=== PATIENT | male | born 1935 | race Caucasian/White ===

== ENCOUNTER 2018-01-27 15:36 | Inpatient (IN) | payer MEDICARE, OTHER ==
[2018-01-27 16:28] LABS: #Basophils 0.1 thou/uL (0.0-0.2); #Eosinphils 0.4 thou/uL (0.0-0.7); #Lymphocytes 1.9 thou/uL (1.20-3.40); #Monocytes 0.6 thou/uL (0.11-0.59); #Neutrophils 4.2 thou/uL (1.40-6.50); %Basophils 0.9 % (0.0-1.0); %Eosinophils 5.5 % (0.0-10.0); %Lymphocytes 26.7 % (21.0-51.0); %Monocytes 8.2 % (0.0-10.0); %Neutrophils 58.8 % (42.0-75.0); Hemoglobin 15.3 g/dL (14.0-18.0); Mean Corpuscular Hemoglobin 32.6 pg (27.0-31.0); Mean Corpuscular Volume 95.8 fl (80.0-94.0); Mean Platelet Volume 7.6 fL (7.4-10.4); Platelet Count 189 thou/uL (130-400); RBC Distribution Width 11.8 % (11.5-14.5); Red Blood Cell (RBC) Count 4.71 mill/uL (4.70-6.10); White Blood Cell (WBC) Count 7.1 thou/uL (4.8-10.8)
[2018-01-27 16:35] LABS: PTT 29.5 SEC (22.9-36.1); Prothrombin Time 13.6 SEC (12.0-14.7)
[2018-01-27] MEDS ORDERED: Pantoprazole 40 MG VIAL ONE (16:39)
[2018-01-27 16:40] LABS: ALT (SGPT) 34 U/L (8-55); AST (SGOT) 21 U/L (5-34); Albumin 3.8 g/dL (3.4-4.8); Alkaline Phosphatase 43 U/L (40-150); Anion Gap 12 mmol/L (10-20); BUN (Urea Nitrogen) 22 mg/dL (8.4-25.7); Bilirubin, Total 1.2 mg/dL (0.2-1.2); Calc. Creatinine Clearance 0 mL/min (70-130); Calcium 9.2 mg/dL (7.8-10.44); Carbon Dioxide 23 mmol/L (23-31); Chloride 108 mmol/L (98-107); Estimated GFR-MDRD 52; Globulin 2.9 g/dL (2.4-3.5); Glucose 133 mg/dL (83-110); Potassium 4.3 mmol/L (3.5-5.1); Protein, Total 6.7 g/dL (5.8-8.1); Sodium 139 mmol/L (136-145)
[2018-01-27 16:49] LABS: CKMB 1.5 ng/mL (0-6.6); Troponin I 0.018 ng/mL (< 0.028)
--- NOTE | 2018-01-27 17:13 | RAD ---
FRONTAL RADIOGRAPH CHEST 01/27/18 COMPARISON: 09/22/16 HISTORY: Nausea, vomiting. FINDINGS: There is no pneumothorax or pleural fluid. No focal consolidation or alveolar edema. Heart and medias tinal contours are unremarkable. There is atherosclerotic calcification of the aortic arch. IMPRESSION: No acute findings. POS: [facility]
[2018-01-27] MEDS ORDERED: Ondansetron HCl/PF 4 MG/2 ML Vial IVP PRN (17:36)
[2018-01-27] MEDS ORDERED: Ondansetron ODT 4 MG TAB SL PRN (17:36)
[2018-01-27] MEDS ORDERED: D5 1/2 NS w/20 mEq KCL 1,000 ML IV SCH (17:45)
[2018-01-27 17:47] VITALS: BMI 28.0
--- NOTE | 2018-01-27 18:00 | PDOC.EVN ---
Event Note - Event Note Event Note: [id number] H&P Dictated 1. Melena 2. HTN 3. H/O CAD 4. H/O HPL plan: see orders
[2018-01-27] MEDS: Sodium Chloride 0.9% 1,000 ML IV SCH (18:29)
[2018-01-27 19:14] LABS: PTT 29.6 SEC (22.9-36.1); Prothrombin Time 13.3 SEC (12.0-14.7)
[2018-01-27] MEDS: Pantoprazole 40 MG VIAL IVP SCH (21:03)
--- NOTE | 2018-01-28 00:26 | HP ---
DATE OF ADMISSION: 01/27/2018 CHIEF COMPLAINT: Melena. HISTORY OF PRESENT ILLNESS: The patient is an 82-year-old male with past medical history of hyperten jone, hyperlipidemia, coronary artery disease, now came today complaining of black stool. The patien t had an episode of black stool yesterday and then today. Denies any bright red blood per rectum. D enies any abdominal pain, denies any nausea, denies any vomiting, denies any hematemesis. Denies sim ilar episodes in the past. Denies any chest pain. Denies any palpations. Denies any cough. Denies sputum production. The patient said he does take aspirin and Plavix at home. Denies any fever, den ies any chills, denies cough, denies any sputum production. PAST MEDICAL HISTORY: As per HPI. PAST SURGICAL HISTORY: Back surgery, no surgery. SOCIAL HISTORY: Denies smoking, denies alcohol or denies any drugs. FAMILY HISTORY: Denies heart problems. MEDICATIONS: Reviewed. ALLERGIES: Reviewed. REVIEW OF SYSTEMS: Constitutional: Denies any fevers, denies any chills. Eyes: Denies vision prob lems. Ears: denies hearing loss. Neck: Denies any neck pain. Cardiovascular: Denies any chest p ain, denies any palpitations. Respiratory system: Denies any cough, denies sputum production. Aníbal rointestinal: Denies nausea or vomiting. Genitourinary: Denies dysuria. Musculoskeletal: No joint deformities. Cranial nerve system: Denies syncope, denies lightheadedness. Psychiatric: Denies a nxiety. All other review of systems are reviewed and are negative. PHYSICAL EXAMINATION: Constitutional/vital signs: At the time of H and P performed temperature is 98.4, heart rate 64, res piration rate 16, blood pressure is 155/82. GENERAL: The patient appears comfortable. HEENT: Pupils equal, round, reactive. Nose are normal. Ears are normal. Teeth intact. Tongue is moist. NECK: Supple. No JVD. CARDIOVASCULAR SYSTEM: S1, S2 present. Regular rate and rhythm, no murmurs, no rubs, no gallops. RESPIRATORY SYSTEM: No wheezing, no rhonchi. Breath sounds present laterally. GASTROINTESTINAL: Abdominal is soft, nontender, no guarding normally, no masses felt. MUSCULOSKELETAL: No edema. NEUROLOGIC: Cranial nerve system awake, follows commands, strength intact, sensory intact. PSYCHIATRIC: Mood is appropriate of this time. INTEGUMENTARY: No rash seen. GENITOURINARY: No suprapubic tenderness, LABORATORY DATA: No labs at the time of H and P performed. Sodium 139, potassium 4.3, chloride 108, CO2 of 23, BUN was 22, creatinine 1.32. BNP 271. Troponin 0.018. Serum total protein 6.7. White count 7.1, hemoglobin 15.3, platelet count is 189. PT 13.6, INR 1. ASSESSMENT AND PLAN: The patient is an 82 years old male. 1. Melena. Plan to do check H and H q.6 hours. Plan to monitor the patient closely. If hemoglobin drops, we will send stool occult blood also. We will monitor the patient closely. 2. Hypertension. Monitor history of coronary disease. Denies any history of stents in the pa st, so will go ahead and hold aspirin and Plavix at this time. We will monitor the patient. 3. History of hyperlipidemia. Continue statin. The case was discussed in detail with the patient and the family also.
[2018-01-28 05:23] LABS: #Basophils 0.1 thou/uL (0.0-0.2); #Eosinphils 0.5 thou/uL (0.0-0.7); #Lymphocytes 3.4 thou/uL (1.20-3.40); #Monocytes 0.7 thou/uL (0.11-0.59); #Neutrophils 4.3 thou/uL (1.40-6.50); %Basophils 0.6 % (0.0-1.0); %Eosinophils 5.5 % (0.0-10.0); %Lymphocytes 37.4 % (21.0-51.0); %Monocytes 8.1 % (0.0-10.0); %Neutrophils 48.4 % (42.0-75.0); Hemoglobin 15.4 g/dL (14.0-18.0); Mean Corpuscular HGB CONC 33.3 g/dL (32.0-36.0); Mean Corpuscular Hemoglobin 32.1 pg (27.0-31.0); Mean Corpuscular Volume 96.5 fl (80.0-94.0); Mean Platelet Volume 8.6 fL (7.4-10.4); Platelet Count 184 thou/uL (130-400); Red Blood Cell (RBC) Count 4.79 mill/uL (4.70-6.10)
[2018-01-28 05:44] LABS: ALT (SGPT) 34 U/L (8-55); AST (SGOT) 24 U/L (5-34); Albumin 3.6 g/dL (3.4-4.8); Alkaline Phosphatase 43 U/L (40-150); Anion Gap 17 mmol/L (10-20); BUN (Urea Nitrogen) 20 mg/dL (8.4-25.7); Calc. Creatinine Clearance 60 mL/min (70-130); Calcium 8.9 mg/dL (7.8-10.44); Carbon Dioxide 20 mmol/L (23-31); Chloride 106 mmol/L (98-107); Estimated GFR-MDRD 53; Globulin 3.2 g/dL (2.4-3.5); Glucose 73 mg/dL (83-110); Potassium 4.4 mmol/L (3.5-5.1); Protein, Total 6.8 g/dL (5.8-8.1); Sodium 139 mmol/L (136-145)
[2018-01-28] MEDS: Sodium Chloride 0.9% 1,000 ML IV SCH (06:01)
[2018-01-28] MEDS ORDERED: Lidocaine 1% PF 5 ML VIAL ONE (07:11)
[2018-01-28] MEDS ORDERED: Propofol 200 MG/20 ML VIAL ONE (07:11)
[2018-01-28] MEDS ORDERED: Acetaminophen 325 MG TAB PO PRN (09:10)
[2018-01-28] MEDS ORDERED: Ondansetron HCl/PF 4 MG/2 ML Vial IVP PRN (09:10)
[2018-01-28] MEDS ORDERED: hydrALAZINE 20 MG/ML VIAL SLOW IVP PRN (09:10)
--- NOTE | 2018-01-28 09:12 | PDOC.PN ---
- Subjective Encounter Start Date: 01/28/18 Encounter Start Time: 09:11 Mr. Ramirez was seen today in follow-up. He does not have any complaints this morning. He has not noted any rectal bleeding this morning. - Objective Resuscitation Status: Resuscitation Status FULL:Full Resuscitation MAR Reviewed: Yes Vital Signs & Weight: Vital Signs (12 hours) Temp Pulse Resp BP Pulse Ox 01/28/18 07:18 98.2 F 64 16 145/74 H 94 L 01/28/18 04:00 97.9 F 72 20 133/69 93 L Weight Weight 217 lb I&O: 01/27/18 01/28/18 01/29/18 06:59 06:59 06:59 Intake Total 1620 Output Total 550 Balance 1070 Result Diagrams: 01/28/18 08:01 01/28/18 04:03 Phys Exam - Physical Examination HEENT: PERRLA Respiratory: no wheezing, no rales, no rhonchi, clear to auscultation bilateral Cardiovascular: RRR, no significant murmur, no rub Gastrointestinal: soft, non-tender, positive bowel sounds Musculoskeletal: no edema Dx/Plan (1) Melena Code(s): K92.1 - MELENA Status: Acute (2) CAD (coronary artery disease) Code(s): I25.10 - ATHSCL HEART DISEASE OF [place] CORONARY ARTERY W/O ANG PCTRS Status: Acute (3) Hypertension Code(s): I10 - ESSENTIAL (PRIMARY) HYPERTENSION Status: Acute - Plan * GI bleed- his H&H has remained stable. He has not reported any further bleeding. He is concerned and would like to see a [employer] before discharge- will consult GI * CAD- stable- will have to hold aspirin and Plavix due to concerns for possible bleed. * Continue Protonix BID * HTN- blood pressure is stable.
[2018-01-28] MEDS: Pantoprazole 40 MG VIAL IVP SCH (09:32)
[2018-01-28 18:25] VITALS: BP 170/82; TEMP 98.2
--- NOTE | 2018-01-29 01:08 | OP ---
PROCEDURE: EGD. PREPROCEDURE DIAGNOSES: 1. Reported history of melena in the outpatient setting, one stool daily for 3 days formed, black. In the emergency room, the ER note indicates he had "malonic stool." Hemoccult one was positive, one was negative. 2. The patient has had no signs of bleeding since admission, his hemoglobin remains normal. His BUN is not elevated and he has had no bowel movements. 3. The patient is on anticoagulation. Decision was made to proceed with endoscopy to rule out upper gastrointestinal bleed. POSTPROCEDURE DIAGNOSIS: Esophagogastroduodenoscopy is normal, no signs of bleeding. RECOMMENDATION: Advance diet and the patient go home. , so I will give him 60 days' supply of pantoprazole. ANESTHESIA: TIVA. PROCEDURE IN DETAIL: After the patient was informed of the risks, benefits, possible complications o f endoscopy including perforation, bleeding, reactions to medication and aspiration, informed consent was obtained. The patient was brought to endoscopy suite where she was sedated in gradual fashion. Once she was comfortable, the endoscope was advanced through the esophagus, stomach, and second and third portion of duodenum and slowly removed. There was good visualization of mucosa. There were no masses, lesions or AV malformations identified. Retroflexed views in the stomach were normal. Ther e were no stigmata of bleeding. The scope was removed. The patient tolerated the procedure well wit h no complications.
--- NOTE | 2018-01-29 01:52 | CON ---
DATE OF CONSULTATION: 01/28/2018 HISTORY OF PRESENT ILLNESS: Mr. Gonzalez is an 82-year-old gentleman who came to the hospital yesterda y to the emergency room as he has had 3 days of black stools. He had 1 bowel movement per day. Ther e were formed, but black. He denies taking iron or Pepto-Bismol, eating dark greens. He had taken n o over the counter antacids. In the emergency room, he was found to be hemodynamically stable, but w ith his history of being on aspirin and Plavix for cardiac disease, he was examined in the emergency room physician documented that he had dark tarry stool visualized. Initially, Hemoccults have been p erformed, one of which was positive and one of which was negative. The story gets more confusing wit h the fact that his hemoglobin was 15.3 at 1600 yesterday and it was 15.4 at 4:00 this morning and on ly hematocrit was checked at 8:00 this morning, but it was 43.8 from 46.2, which is possibly a drop o f 1 gram at best. He has been on IV fluids. He has had no bowel movement since admission. Presentl y, he denies shortness breath, chest pain, dizziness or abdominal pain. He has had no recent dyspeps ia or reflux. PAST MEDICAL HISTORY: Notable for coronary artery disease. PAST SURGICAL HISTORY: Back surgery. He had EGD and colonoscopy at our office in 07/2014, which wer e notable for normal stomach biopsy and some hyperplastic polyps. He sees Dr. Reno Thompson for coronary artery disease. He had a previous MD. He also had a TIA. He denies having any cardiac stents plac ed. SOCIAL HISTORY: He denies drugs, alcohol, or tobacco use. HOME MEDICATIONS: Potassium bicarbonate, nitroglycerin p.r.n., he has not used that in years. Metop rolol, furosemide, Plavix 75 mg daily, atorvastatin, aspirin 81 mg daily. PRESENT MEDICATIONS: Tylenol, Protonix 40 IV b.i.d., Zofran and normal saline 75 an hour. PHYSICAL EXAMINATION: GENERAL: Patient is resting comfortably in bed. He is in no distress. He is alert and oriented to person, place, and time. His son is at the bedside. LUNGS: Clear. HEART: Regular rate and rhythm without clicks or murmurs. ABDOMEN: Soft, nontender, without rebound or guarding. RECTAL: Reveals dark brown stool. It does not appear melenic. VITAL SIGNS: Temperature is 98, pulse 81, blood pressure 129/76. OTHER LABORATORY DATA: Comp met profile was normal with a BUN of 20, creatinine of 1.29. ASSESSMENT: This is an 82-year-old gentleman who comes in with a reported 3 days of black stools. Yuliya aguilar has given a documented rectal examination from the emergency room physician states he had melenic b lack stool; however, he has had a stable hemoglobin since admission. No evidence of elevated BUN and on my rectal examination, now he has a brown stool. He does have 1/2 Hemoccult positive. This is a little bit confusing to me. I am not sure that he ever had melena, but the ER physician did documen t that in his study that he did a rectal exam and saw the patient states his stool was black, althoug h more formed and not tarry; however, the patient has significant risk factors for bleeding with his advanced age using NSAIDs daily and also being on Plavix. I think the better part judgment he has be en n.p.o. He is to go ahead and perform EGD today. If that is normal, he can eat and go home. If i t is not and he has a ulcer, we , he may go home. If it is something we can treat endoscopicall y, then he will need to stay overnight. He agrees with this plan as does the son. The risks, benefi ts, and possible complications of endoscopy discussed with the patient. We will proceed with EGD toarianna dominguez and has been scheduled surgery.
--- NOTE | 2018-01-29 15:34 | DIS ---
DATE OF ADMISSION: 01/27/2018 DATE OF DISCHARGE: 01/28/2018 PRIMARY CARE PHYSICIAN: Unknown. DISCHARGE DISPOSITION: Home. PRIMARY DISCHARGE DIAGNOSES: 1. Possible melena. 2. Hypertension. 3. Hyperlipidemia. 4. Coronary artery disease. DISCHARGE MEDICATIONS: Protonix 40 mg daily, as well as aspirin 81 mg daily, Lipitor 40 mg at bedtim e, Plavix 75 mg daily, Lasix 20 mg as directed, metoprolol 25 mg twice daily, Nitrostat as needed. PROCEDURES DONE DURING ADMISSION: The patient had an upper endoscopy, which was normal. There were no signs of any bleeding. CODE STATUS: FULL CODE. ALLERGIES: PROPOXYPHENE. HOSPITAL COURSE: Mr. Gonzalez is a pleasant 82-year-old gentleman, who came to the emergency room afte r experiencing melena. He says he was having black stools. He also felt a little bit dizzy and ligh theaded. He was evaluated in the emergency room and one of his stools was positive for occult blood. Another repeat stool was negative. He was admitted and seen by Gastroenterology. He had an upper endoscopy, which was negative for signs of bleeding. It is also noted that his hemoglobin remained s table with hemoglobin of 15.3 on the second and the following day, the hemoglobin actually increased to 15.4. He had a bowel movement the following morning and there were no signs of bleeding. That al екатерина with a negative EGD, he was discharged home. 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
== END 2018-01-28 19:05 | disposition home or self-care (01) | DRG 379 ==
LOC: ERS 15:36 → 2NO 16:49
PROVIDERS: ADMIT Internal Medicine; ATTEND Internal Medicine
PROC: 0DJ08ZZ Inspection of Upper Intestinal Tract, Via Natural or Artificial Opening Endoscopic (ICD-10-PCS; principal; 2018-01-27)
DX: K92.1 Melena (principal); E78.5 Hyperlipidemia, unspecified; I25.10 Atherosclerotic heart disease of native coronary artery without angina pectoris; I10 Essential (primary) hypertension; Z79.82 Long term (current) use of aspirin
CPT/HCPCS: 36415; 71045; 80053; 82274; 82553; 83880; 84484; 85025; 85610; 85730; 86850; 86900; 86901; 93005; 96361; 96374; C9113; J2001; J2704

== ENCOUNTER 2019-12-07 15:15 | Outpatient (CLI) | payer MEDICARE, OTHER ==
--- NOTE | 2019-12-07 16:27 | ULT ---
RENAL ULTRASOUND: 12/07/19 HISTORY: Chronic renal failure. COMPARISON: None. TECHNIQUE: Sagittal and transverse imaging of the kidneys is performed. FINDINGS: Right kidney: No evidence of a cortical mass. No hydronephrosis. Right kidney measures 0.2 x 4.6 x 5.2 cm. Left kidney: There are two separate anechoic foci in the left renal cortex, likely representing exophytic cysts. T here is a cyst in the upper pole of the left kidney measuring 1.2 x 1.0 x 1.1 cm. Cyst in the mid priscilla e of the left kidney measures 1.1 x 1.1 x 1.0 cm. No hydronephrosis. Left kidney measures 5.1 x 5.0 x 10.2 cm. Bladder could not be assessed due to inadequate distention. IMPRESSION: No hydronephrosis. POS: [facility]
== END 2019-12-07 15:16 | disposition home or self-care (01) ==
LOC: BICULT 15:15
PROVIDERS: ATTEND Internal Medicine Nephrology
DX: N18.3 Chronic kidney disease, stage 3 (moderate) (principal)
CPT/HCPCS: 76770

== ENCOUNTER 2022-06-14 18:51 | Inpatient (IN) | payer MEDICARE ==
[2022-06-14 19:32] LABS: #Basophils 0.1 thou/uL (0.0-0.2); #Eosinphils 0.4 thou/uL (0.0-0.7); #Lymphocytes 2.3 thou/uL (1.20-3.40); #Neutrophils 8.7 thou/uL (1.40-6.50); %Basophils 1.1 % (0.0-1.0); %Lymphocytes 18.4 % (21.0-51.0); %Monocytes 7.9 % (0.0-10.0); %Neutrophils 69.6 % (42.0-75.0); Hemoglobin 16.1 g/dL (14.0-18.0); Mean Corpuscular HGB CONC 32.1 g/dL (32.0-36.0); Mean Corpuscular Hemoglobin 32.8 pg (27.0-31.0); Mean Platelet Volume 8.4 fL (7.4-10.4); Platelet Count 226 thou/uL (130-400); White Blood Cell (WBC) Count 12.5 thou/uL (4.8-10.8)
[2022-06-14 19:54] LABS: ALT (SGPT) 54 U/L (8-55); AST (SGOT) 21 U/L (5-34); Albumin 3.6 g/dL (3.4-4.8); Alkaline Phosphatase 96 U/L (40-110); Anion Gap 17 mmol/L (10-20); BUN (Urea Nitrogen) 28 mg/dL (8.4-25.7); Bilirubin, Total 1.1 mg/dL (0.2-1.2); Calc. Creatinine Clearance 0 mL/min (70-130); Calcium 8.9 mg/dL (7.8-10.44); Carbon Dioxide 20 mmol/L (23-31); Chloride 109 mmol/L (98-107); Estimated GFR 43; Globulin 3.2 g/dL (2.4-3.5); Glucose 97 mg/dL (83-110); Potassium 4.8 mmol/L (3.5-5.1); Protein, Total 6.8 g/dL (5.8-8.1); Sodium 141 mmol/L (136-145)
[2022-06-14 20:16] LABS: CKMB 1.5 ng/mL (0-6.6)
[2022-06-14 23:41] LABS: Troponin I 0.142 ng/mL (< 0.028)
[2022-06-15] MEDS ORDERED: Aspirin 325 MG TAB PO SCH (00:30)
[2022-06-15] MEDS: Sodium Chloride 0.45% 1,000 ML IV SCH ×2 (01:20→09:22)
[2022-06-15 02:48] LABS: Troponin I 0.328 ng/mL (< 0.028)
[2022-06-15] MEDS ORDERED: Enoxaparin Sodium 100 MG/ML SYRINGE SC SCH ×2 (03:30→21:00)
[2022-06-15 10:01] LABS: CKMB 2.8 ng/mL (0-6.6)
[2022-06-15] MEDS ORDERED: Ondansetron ODT 4 MG TAB PO PRN (10:52)
[2022-06-15] MEDS ORDERED: Acetaminophen 325 MG TAB PO PRN (10:52)
[2022-06-15] MEDS ORDERED: Ondansetron PF 4 MG/2 ML Vial IVP PRN (10:52)
[2022-06-15] MEDS ORDERED: Acetaminophen 650 MG Suppository PR PRN (10:52)
[2022-06-15 12:28] LABS: Critical Call Chem Troponin I RESULT DECREASING
[2022-06-15 12:57] LABS: #Eosinphils 0.5 thou/uL (0.0-0.7); #Lymphocytes 2.1 thou/uL (1.20-3.40); #Monocytes 0.9 thou/uL (0.11-0.59); %Basophils 0.3 % (0.0-1.0); %Eosinophils 5.1 % (0.0-10.0); %Lymphocytes 22.6 % (21.0-51.0); %Monocytes 8.9 % (0.0-10.0); %Neutrophils 63.1 % (42.0-75.0); Mean Corpuscular HGB CONC 33.1 g/dL (32.0-36.0); Mean Corpuscular Hemoglobin 32.7 pg (27.0-31.0); Mean Platelet Volume 8.3 fL (7.4-10.4); Platelet Count 210 thou/uL (130-400); Red Blood Cell (RBC) Count 4.26 mill/uL (4.70-6.10); White Blood Cell (WBC) Count 9.5 thou/uL (4.8-10.8)
[2022-06-15 13:05] LABS: Lactic Acid 1.2 mmol/L (0.5-2.2)
[2022-06-15] MEDS ORDERED: Heparin 5,000 UNITS/ML VIAL SC SCH (21:00)
[2022-06-16] MEDS ORDERED: Benzonatate 100 MG CAP ONE (01:43)
[2022-06-16 06:46] LABS: #Basophils 0.1 thou/uL (0.0-0.2); #Eosinphils 0.5 thou/uL (0.0-0.7); #Lymphocytes 2.3 thou/uL (1.20-3.40); #Monocytes 0.8 thou/uL (0.11-0.59); #Neutrophils 4.4 thou/uL (1.40-6.50); %Basophils 0.7 % (0.0-1.0); %Eosinophils 6.4 % (0.0-10.0); %Lymphocytes 28.2 % (21.0-51.0); %Monocytes 10.4 % (0.0-10.0); %Neutrophils 54.5 % (42.0-75.0); Hemoglobin 14.5 g/dL (14.0-18.0); Mean Corpuscular Hemoglobin 32.6 pg (27.0-31.0); Mean Corpuscular Volume 98.8 fL (78.0-98.0); Platelet Count 216 thou/uL (130-400); RBC Distribution Width 11.9 % (11.5-14.5); Red Blood Cell (RBC) Count 4.46 mill/uL (4.70-6.10); White Blood Cell (WBC) Count 8.1 thou/uL (4.8-10.8)
[2022-06-16 06:48] LABS: Anion Gap 14 mmol/L (10-20); BUN (Urea Nitrogen) 23 mg/dL (8.4-25.7); Calc. Creatinine Clearance 44 mL/min (70-130); Calcium 8.7 mg/dL (7.8-10.44); Carbon Dioxide 21 mmol/L (23-31); Chloride 109 mmol/L (98-107); Estimated GFR 47; Glucose 94 mg/dL (83-110); Potassium 4.2 mmol/L (3.5-5.1); Sodium 140 mmol/L (136-145)
[2022-06-16 09:00] LABS: Bacteria/HPF None Seen HPF (None Seen); Bilirubin Negative (Negative); Blood, Urine Negative (Negative); Clarity Clear (Clear); Glucose, Urine (Dipstick) Normal (Negative); Ketone, Urine Negative (Negative); Leukocyte 75 Leu/uL (Negative); Nitrite Negative (Negative); Protein, Urine (Dipstick) Negative (Neg-Trace); RBC/HPF None Seen HPF (0-3); Specific Gravity, Urine 1.012 (1.002-1.036); Squamous Epithelial 0-3 HPF (0-3); Urobilinogen Normal mg/dL (Less than 2); WBC/HPF 0-3 HPF (0-3)
[2022-06-16] MEDS ORDERED: Enoxaparin Sodium 80 MG/0.8 ML SYRINGE SC SCH (09:00)
[2022-06-16 09:02] LABS: Urine Culture Reflex Yes Yes
[2022-06-16] MEDS: Enoxaparin Sodium 100 MG/ML SYRINGE SC SCH ×2 (09:09→20:45)
[2022-06-16] MEDS: Benzonatate 100 MG CAP PO PRN ×3 (11:42→23:39)
[2022-06-16] MEDS ORDERED: Guaifenesin DM 100-10/5 ML UDCUP PO PRN (12:11)
[2022-06-16] MEDS ORDERED: Iopamidol 370 76% 100 ML VIAL ONE (14:16)
[2022-06-16] MEDS ORDERED: Clopidogrel Bisulfate 75 MG TAB PO SCH (21:00)
[2022-06-16] MEDS ORDERED: Atorvastatin Calcium 40 MG TAB PO SCH (21:00)
[2022-06-16] MEDS ORDERED: Aspirin 81 mg Enteric Coated Tablet PO SCH (21:00)
[2022-06-17] MEDS: Benzonatate 100 MG CAP PO PRN (05:22)
[2022-06-17] MEDS: Enoxaparin Sodium 100 MG/ML SYRINGE SC SCH (09:17)
[2022-06-17 09:57] VITALS: BMI 25.7
[2022-06-17 16:13] VITALS: BP 117/71; TEMP 97.8
== END 2022-06-17 16:45 | disposition home health service (06) | DRG 177 ==
LOC: ERS 18:51 → 2NO 22:49 → OBSVTOIN 06-15 15:57
PROVIDERS: ADMIT Student in an Organized Health Care Education/Training Program; ATTEND Internal Medicine
PROC: 8E0ZXY6 Isolation (ICD-10-PCS; principal; 2022-06-15)
DX: U07.1 COVID-19 (principal); I21.A1 Myocardial infarction type 2; N18.9 Chronic kidney disease, unspecified; I35.0 Nonrheumatic aortic (valve) stenosis; I12.9 Hypertensive chronic kidney disease with stage 1 through stage 4 chronic kidney disease, or unspecified chronic kidney disease; I25.10 Atherosclerotic heart disease of native coronary artery without angina pectoris; E86.0 Dehydration; K21.9 Gastro-esophageal reflux disease without esophagitis; E78.5 Hyperlipidemia, unspecified; Z79.82 Long term (current) use of aspirin; Z79.899 Other long term (current) drug therapy; I25.2 Old myocardial infarction; Z98.890 Other specified postprocedural states; Z86.73 Personal history of transient ischemic attack (TIA), and cerebral infarction without residual deficits; Z88.8 Allergy status to other drugs, medicaments and biological substances; Z98.49 Cataract extraction status, unspecified eye; Z87.891 Personal history of nicotine dependence
CPT/HCPCS: 36415; 71045; 71275; 80048; 80053; 81001; 82553; 83605; 84145; 84484; 85025; 87086; 93005; 93306; 96360; G0378; J1650; Q9967; U0003; U0005

== ENCOUNTER 2022-07-29 12:28 | Emergency (ER) | payer MEDICARE, OTHER ==
[2022-07-29] MEDS ORDERED: Ondansetron PF 4 MG/2 ML Vial ONE (13:28)
[2022-07-29] MEDS ORDERED: Morphine 4 MG/ML VIAL ONE (13:28)
[2022-07-29 15:08] LABS: #Eosinphils 0.3 thou/uL (0.0-0.7); #Lymphocytes 2.1 thou/uL (1.20-3.40); #Monocytes 0.8 thou/uL (0.11-0.59); #Neutrophils 4.8 thou/uL (1.40-6.50); %Basophils 0.6 % (0.0-1.0); %Eosinophils 3.9 % (0.0-10.0); %Lymphocytes 26.2 % (21.0-51.0); %Monocytes 9.4 % (0.0-10.0); %Neutrophils 59.9 % (42.0-75.0); Hemoglobin 14.6 g/dL (14.0-18.0); Mean Corpuscular HGB CONC 33.3 g/dL (32.0-36.0); Mean Corpuscular Volume 98.9 fL (78.0-98.0); Mean Platelet Volume 8.2 fL (7.4-10.4); Platelet Count 184 thou/uL (130-400); Red Blood Cell (RBC) Count 4.42 mill/uL (4.70-6.10)
[2022-07-29 15:28] LABS: ALT (SGPT) 37 U/L (8-55); AST (SGOT) 28 U/L (5-34); Albumin 3.4 g/dL (3.4-4.8); Alkaline Phosphatase 95 U/L (40-110); Anion Gap 14 mmol/L (10-20); BUN (Urea Nitrogen) 26 mg/dL (8.4-25.7); Calc. Creatinine Clearance 0 mL/min (70-130); Calcium 8.8 mg/dL (7.8-10.44); Carbon Dioxide 23 mmol/L (23-31); Chloride 106 mmol/L (98-107); Estimated GFR 47; Globulin 3.1 g/dL (2.4-3.5); Glucose 90 mg/dL (83-110); Potassium 4.9 mmol/L (3.5-5.1); Protein, Total 6.5 g/dL (5.8-8.1); Sodium 138 mmol/L (136-145)
== END 2022-07-29 15:31 | disposition home or self-care (01) ==
LOC: ERS 12:28
DX: M51.26 Other intervertebral disc displacement, lumbar region (principal); I25.2 Old myocardial infarction; Z86.73 Personal history of transient ischemic attack (TIA), and cerebral infarction without residual deficits
CPT/HCPCS: 72131; 80053; 85025; 96374; 96375; J2270; J2405

== ENCOUNTER 2023-01-09 13:06 | Emergency (ER) | payer MEDICARE, OTHER ==
[2023-01-09] MEDS ORDERED: Ondansetron PF 4 MG/2 ML Vial ONE (13:43)
[2023-01-09 14:08] LABS: #Basophils 0.1 thou/uL (0.0-0.2); #Eosinphils 0.4 thou/uL (0.0-0.7); #Lymphocytes 1.6 thou/uL (1.20-3.40); #Neutrophils 5.5 thou/uL (1.40-6.50); %Basophils 0.8 % (0.0-1.0); %Eosinophils 4.8 % (0.0-10.0); %Neutrophils 63.4 % (42.0-75.0); Hemoglobin 14.6 g/dL (14.0-18.0); Mean Corpuscular HGB CONC 34.6 g/dL (32.0-36.0); Mean Corpuscular Hemoglobin 34.3 pg (27.0-31.0); Mean Corpuscular Volume 99.2 fl (78.0-98.0); Mean Platelet Volume 8.4 fL (7.4-10.4); Platelet Count 159 10x3/uL (130-400); RBC Distribution Width 11.7 % (11.5-14.5); Red Blood Cell (RBC) Count 4.24 mill/uL (4.70-6.10); White Blood Cell (WBC) Count 8.6 10x3/uL (4.8-10.8)
[2023-01-09 14:26] LABS: ALT (SGPT) 54 U/L (8-55); AST (SGOT) 44 U/L (5-34); Albumin 3.3 g/dL (3.4-4.8); Alkaline Phosphatase 77 U/L (40-110); Anion Gap 14 mmol/L (10-20); BUN (Urea Nitrogen) 25 mg/dL (8.4-25.7); Bilirubin, Total 0.9 mg/dL (0.2-1.2); Calc. Creatinine Clearance 0 mL/min (70-130); Calcium 8.7 mg/dL (7.8-10.44); Carbon Dioxide 21 mmol/L (23-31); Chloride 107 mmol/L (98-107); Estimated GFR 36; Globulin 3.2 g/dL (2.4-3.5); Glucose 102 mg/dL (83-110); Lipase 51 U/L (8-78); Magnesium 1.9 mg/dL (1.6-2.6); Potassium 4.9 mmol/L (3.5-5.1); Protein, Total 6.5 g/dL (5.8-8.1); Sodium 137 mmol/L (136-145)
[2023-01-09 15:32] LABS: SARS-CoV-2 NAA Rapid Test Not Detected (NotDetected)
[2023-01-09 17:47] LABS: Bilirubin Negative (Negative); Blood, Urine Negative (Negative); Clarity Clear (Clear); Glucose, Urine (Dipstick) Normal (Negative); Ketone, Urine Negative (Negative); Leukocyte 25 Leu/uL (Negative); Nitrite Negative (Negative); Protein, Urine (Dipstick) Negative (Neg-Trace); Specific Gravity, Urine 1.011 (1.002-1.036); Urobilinogen Normal mg/dL (Less than 2)
[2023-01-09 17:48] LABS: Bacteria/HPF None Seen HPF (None Seen); RBC/HPF 0-3 HPF (0-3); Squamous Epithelial None Seen HPF (0-3); WBC/HPF 0-3 HPF (0-3)
== END 2023-01-09 19:03 | disposition home or self-care (01) ==
LOC: ERS 13:06
DX: E86.0 Dehydration (principal); R53.1 Weakness; Z20.822 Contact with and (suspected) exposure to COVID-19; Z86.73 Personal history of transient ischemic attack (TIA), and cerebral infarction without residual deficits; Z87.891 Personal history of nicotine dependence; Z79.82 Long term (current) use of aspirin; Z79.899 Other long term (current) drug therapy
CPT/HCPCS: 0240U; 71045; 80053; 83605; 83690; 83735; 84484; 85025; 87040; 87086; 93005; 36415; 81003; 81015; 96361; 96374; J2405